=== PATIENT | male | born 1970 | race Caucasian/White ===

== ENCOUNTER 2021-10-19 03:43 | Emergency (ER) | payer SELFPAY ==
[~2021-10-19] VITALS: Ht 177.8 cm; Wt 104.3 kg
[2021-10-19 03:48] VITALS: BP 158/99
--- NOTE | 2021-10-19 03:56 | NUR ---
To ER bed 02.
--- NOTE | 2021-10-19 03:57 | NUR ---
received pt from intake and placed to bed 02. pt currently a/o x 4, gcs 15. able to move all extremities freely. pt is a 50 year old male with hx of htn, and hld coming from home for cc of high BP at home. per pt, has not been compliant with meds and has switched to "holistic treatments." currently BP normal at this time.
--- NOTE | 2021-10-19 04:08 | NUR ---
Dr. Bartholomew with pt for MSE
--- NOTE | 2021-10-19 04:32 | NUR ---
d/c with [facility]. d/c education given. opportunity to ask questions given and answered. no rx given.
== END 2021-10-19 04:32 | disposition home or self-care (01) ==
LOC: MED 03:43
DX: I10 Essential (primary) hypertension (principal)
CPT/HCPCS: 99281